=== PATIENT | female | born 1980 | race Two or more races ===

== ENCOUNTER 2019-04-03 22:34 | Emergency (ER) | payer MEDICAID ==
[~2019-04-03] VITALS: Ht 172.7 cm; Wt 74.6 kg
[2019-04-03 22:50] VITALS: BP 128/76
[2019-04-03 23:44] LABS: Basophils # (auto) 0 uL; Hemoglobin 9.8 g/dL (12.2-16.2); Monocytes # (auto) 0.4 uL; White Blood Cell 5.7 10^3/uL (4.4-10.8)
[2019-04-03 23:46] LABS: Basophils % (auto) 0.8 % (0.0-2.0); Eosinophils # (auto) 0.2 uL; Eosinophils % (auto) 2.8 % (0.0-7.0); Hematocrit 30.2 % (36.0-46.0); Lymphocytes # (auto) 1.9 uL; Lymphocytes % (auto) 34.2 % (10.0-50.0); Mean Corpuscular Hemoglobin 24.5 pg (28.0-32.0); Mean Corpuscular Hgb Conc. 32.4 g/dL (32.0-36.0); Mean Corpuscular Volume 75.7 fL (80.0-100.0); Monocytes % (auto) 7.2 % (0.0-12.0); Neutrophils # (auto) 3.1 uL; Platelet Count (auto) 308 10^3/uL (140-450); Red Blood Cells 3.99 10^6/uL (4.0-5.20); Red Cell Distribution Width 17.1 % (11.8-14.3)
[2019-04-04 00:03] LABS: Urine Bacteria NONE SEEN /hpf (None Seen); Urine Blood Negative /uL (Negative); Urine Specific Gravity 1.002 (1.001-1.035); Urine WBC <1 /hpf (0 - 5)
[2019-04-04 00:03] LABS: Alanine Aminotransferase 18 U/L (13-56); Albumin 3.7 g/dL (3.4-5.0); Anion Gap 9 (5-15); Aspartate Aminotransferase 11 U/L (15-37); BUN/Creatinine Ratio 18.5; Blood Urea Nitrogen 12 mg/dL (7-18); Calcium 7.9 mg/dL (8.5-10.1); Carbon Dioxide 24 mmol/L (21-32); Chloride 109 mmol/L (98-107); GFR African American 131 mL/min; GFR Non-African American 108 mL/min; Glucose 92 mg/dL (74-106); Potassium 3.5 mmol/L (3.5-5.1); Sodium 142 mmol/L (136-145)
[2019-04-04 00:08] LABS: Alkaline Phosphatase 45 U/L (45-117); Bilirubin, Total 0.2 mg/dL (0.2-1.0); Total Protein 6.7 g/dL (6.4-8.2)
== END 2019-04-04 00:45 | disposition left against medical advice (07) ==
LOC: ER 22:37
DX: R20.0 Anesthesia of skin (principal); R07.9 Chest pain, unspecified; Z53.21 Procedure and treatment not carried out due to patient leaving prior to being seen by health care provider
CPT/HCPCS: 36415; 80053; 81001; 84484; 85025; 93005